=== PATIENT | male | born 1955 | race Caucasian/White ===

== ENCOUNTER 2018-05-04 07:42 | Day surgery (SDC) | payer BC ==
[~2018-05-04 07:42] MED LIST: Lactated Ringers 1,000 ML IV SCH
[2018-05-04] MEDS: Lactated Ringers 1,000 ML IV SCH (08:00)
[2018-05-04] MEDS ORDERED: Propofol 200 MG/20 ML SDV ONE (09:45)
[2018-05-04] MEDS ORDERED: fentaNYL 100 MCG/2 ML SDV ONE (09:45)
[2018-05-04] MEDS ORDERED: Midazolam 1 MG/ML 2 ML SDV ONE (09:45)
[2018-05-04 11:43] VITALS: BP 121/70
--- NOTE | 2018-05-04 12:46 | OR ---
PREOPERATIVE DIAGNOSIS: History of polyps. POSTOPERATIVE DIAGNOSIS: Poor bowel prep. No polyps visualized. PROCEDURE PROPOSED AND PROCEDURE DONE: Total flexible colonoscopy. INDICATION: This is a 63-year-old gentleman, who has a history of polyps. His last examination was 3 years ago at which point he was found to have adenomatous polyp greater than 1 cm in size and recommended to have a 3-year followup. He was scheduled for this exam a few weeks ago and had a very poor bowel prep, and was sent home and he comes in now for recommended exam. TECHNIQUE: The patient was brought to the endoscopy suite, placed in left lateral decubitus position. He was sedated per [employer] with propofol. The flexible video colonoscope was then passed transanally and under visualization advanced to the cecum. He had a rather poor bowel prep with a lot of dark greenish brownish fluid requiring fair amount of suctioning, roughly total of 350-400 mL of this thick dark liquid, which was suctioned out throughout procedure. I felt that an adequate exam was obtained as far as ruling out any large polyps, but there certainly could have been a small polyp that was missed because of the inadequate bowel prep and there was no diverticulosis and the ascending, transverse, descending, and sigmoid rectal colon were basically normal other than the poor prep. The scope was then withdrawn. He tolerated procedure well. FINAL IMPRESSION: 1. Poor bowel prep with no polyps noted. 2. History of prior polyps. PLAN: I feel that he should continue to have exams every 5 years hereafter, but he does need a more aggressive bowel prep that is supervised and probably a 2- day bowel prep would be best for him. SCM: 05/04/2018 10:43:05 MODL: 05/04/2018 12:41:40 /[id number]
== END 2018-05-04 12:05 | disposition home or self-care (01) ==
LOC: VM.SDS 07:42
PROVIDERS: ATTEND Surgery
DX: Z12.11 Encounter for screening for malignant neoplasm of colon (principal); E11.9 Type 2 diabetes mellitus without complications; E78.00 Pure hypercholesterolemia, unspecified; E78.5 Hyperlipidemia, unspecified; I10 Essential (primary) hypertension; N40.1 Benign prostatic hyperplasia with lower urinary tract symptoms; Z79.84 Long term (current) use of oral hypoglycemic drugs; Z79.899 Other long term (current) drug therapy; Z88.1 Allergy status to other antibiotic agents; Z98.890 Other specified postprocedural states; Z86.010 Personal history of colon polyps
CPT/HCPCS: 45378; 82962; J2250; J2704; J3010; J7120

== ENCOUNTER → 2023-07-08 | Day surgery (SDC) | payer MEDICARE, OTHER ==
[2023-07-08 07:25] VITALS: BP 151/98; PULSE 72
== END ==
LOC: VM.SDS 06:56
PROVIDERS: ATTEND Family Medicine
DX: Z53.09 Procedure and treatment not carried out because of other contraindication (principal); Z88.0 Allergy status to penicillin
CPT/HCPCS: 82947; J7120

== ENCOUNTER 2023-07-09 08:58 | Day surgery (SDC) | payer MEDICARE, OTHER ==
[2023-07-09] MEDS ORDERED: fentaNYL 100 MCG/2 ML SDV ONE (11:21)
[2023-07-09] MEDS ORDERED: Propofol 200 MG/20 ML SDV ONE (11:21)
[2023-07-09] MEDS ORDERED: Midazolam 1 MG/ML 2 ML SDV ONE (11:22)
[2023-07-09 12:52] VITALS: BP 117/82; PULSE 66
== END 2023-07-09 12:52 | disposition home or self-care (01) ==
LOC: VM.SDS 08:58
PROVIDERS: ATTEND Student in an Organized Health Care Education/Training Program
DX: Z12.11 Encounter for screening for malignant neoplasm of colon (principal); G31.83 Neurocognitive disorder with Lewy bodies; I10 Essential (primary) hypertension; E78.5 Hyperlipidemia, unspecified; E11.9 Type 2 diabetes mellitus without complications; F41.8 Other specified anxiety disorders; N40.1 Benign prostatic hyperplasia with lower urinary tract symptoms; H61.23 Impacted cerumen, bilateral; M77.11 Lateral epicondylitis, right elbow; B35.1 Tinea unguium; L30.9 Dermatitis, unspecified; Z79.84 Long term (current) use of oral hypoglycemic drugs; Z79.899 Other long term (current) drug therapy
CPT/HCPCS: 00811; 82947; J2250; J2704; J3010; J7120

== ENCOUNTER 2024-10-12 06:55 | Day surgery (SDC) | payer MEDICARE, OTHER ==
[2024-10-12] MEDS: Lactated Ringers 1,000 ML IV SCH (07:10)
[2024-10-12] MEDS ORDERED: fentaNYL 100 MCG/2 ML SDV ONE (08:34)
[2024-10-12] MEDS ORDERED: Propofol 200 MG/20 ML SDV ONE ×2 (08:34→08:52)
[2024-10-12 10:01] VITALS: PULSE 63
[2024-10-12 10:12] VITALS: BP 121/87
== END 2024-10-12 11:15 | disposition home or self-care (01) ==
LOC: VM.SDS 06:55
PROVIDERS: ATTEND Family Medicine
DX: Z12.11 Encounter for screening for malignant neoplasm of colon (principal); D12.6 Benign neoplasm of colon, unspecified; Z86.0100 Personal history of colon polyps, unspecified; E11.9 Type 2 diabetes mellitus without complications; I10 Essential (primary) hypertension; E78.5 Hyperlipidemia, unspecified; F41.1 Generalized anxiety disorder; Z79.82 Long term (current) use of aspirin; Z79.899 Other long term (current) drug therapy
CPT/HCPCS: 00811; 82947; 88305; J2704; J3010; J7120